=== PATIENT | male | born 1980 | race Caucasian/White ===

== ENCOUNTER 2020-02-26 07:25 | Outpatient (RCR) | payer OTHER, SELFPAY | END 2020-02-28 23:59 | LOC: EMPH 07:25 | PROVIDERS: Visit Provider Family Medicine Geriatric Medicine | DX: Z03.818 Encounter for observation for suspected exposure to other biological agents ruled out (principal) | CPT/HCPCS: 87426 ==

== ENCOUNTER 2020-03-18 17:50 | Outpatient (RCR) | payer OTHER, SELFPAY | END 2020-03-29 23:59 | LOC: EMPH 17:50 | PROVIDERS: Visit Provider Family Medicine Geriatric Medicine | DX: Z03.818 Encounter for observation for suspected exposure to other biological agents ruled out (principal) | CPT/HCPCS: 87426 ==

== ENCOUNTER 2020-04-21 16:53 | Outpatient (RCR) | payer OTHER, SELFPAY | END 2020-04-29 23:59 | LOC: EMPH 16:53 | PROVIDERS: Visit Provider Family Medicine Geriatric Medicine | DX: Z03.818 Encounter for observation for suspected exposure to other biological agents ruled out (principal) | CPT/HCPCS: 87426 ==

== ENCOUNTER 2020-05-19 16:05 | Outpatient (RCR) | payer OTHER, SELFPAY | END 2020-05-30 23:59 | LOC: EMPH 16:05 | PROVIDERS: Referring Provider Family Medicine Geriatric Medicine; Visit Provider Family Medicine Geriatric Medicine | DX: Z03.818 Encounter for observation for suspected exposure to other biological agents ruled out (principal) | CPT/HCPCS: 87426 ==